=== PATIENT | female | born 1965 | race Caucasian/White ===

== ENCOUNTER 2017-08-02 21:20 | Emergency (ER) | payer SELFPAY ==
[~2017-08-02 21:20] MED LIST: AMOXICILLIN 8751 TAB PO; ANUSOL-HC SUPPO25 MG RC; BENTYL 20MG20 MG/TAB PO; DOXYCYCLINE 10100 MG PO; FLAGYL500 MG PO; GLUCOPHAGE500 MG/TAB PO; LOPRESSOR 225 MG/TAB PO; NAPROSYN500 MG PO; NORCO 325 MG-7.1 TAB PO; SYNTHROID 0.10.15 MG PO; SYNTHROID0.05 MG PO; ZANTAC 7575 MG PO
[2017-08-02 21:28] VITALS: TEMP 98.6
[2017-08-02] MEDS ORDERED: SYNTHROID0.125 MG/T PO (21:31)
[2017-08-02 22:00] LABS: BASO % 0.5 % (0.0-2.0); EOS # 0.1 (0.0-0.7); EOS % 1.4 % (0-4.0); GRAN # 5.4 (1.4-6.5); GRAN % 63.6 % (42.2-75.2); HEMATOCRIT 42.4 % (37.0-47.0); HEMOGLOBIN 13.9 g/dl (12.5-16.0); LYMPH # 2.4 (1.2-3.4); LYMPH % 28.5 % (20.0-51.0); MEAN CELL VOLUME 89 fl (80.0-100.0); MEAN CORPUSCULAR HEMOGLOBIN 29 pg (27.0-31.0); MEAN CORPUSCULAR HGB CONC 33 g/dl (33.0-37.0); MEAN PLATELET VOLUME 10.5 fl (7.4-10.4); MONO # 0.5 (0.1-0.6); MONO % 5.6 % (1.7-9.3); PLATELET COUNT 245 K/mm3 (130-400); RED BLOOD COUNT 4.76 M/mm3 (4.10-5.30); REDCELL DISTRIBUTION WIDTH-CV 12.3 % (11.5-14.5); WHITE BLOOD COUNT 8.4 K/mm3 (4.8-10.8)
[2017-08-02 22:16] LABS: ALBUMIN 4.5 gm/dL (3.5-5.0); BILIRUBIN,TOTAL 0.5 mg/dL (0.0-1.0); CALCIUM 9.4 mg/dL (8.4-10.2); CREATININE, serum 0.84 mg/dL (0.52-1.25); MAGNESIUM 1.9 mg/dL (1.6-2.3); POTASSIUM 3.8 mmol/L (3.4-5.0); TOTAL PROTEIN 8.1 gm/dL (6.4-8.2)
[2017-08-02 23:00] VITALS: BP 133/89; PULSE 77
== END 2017-08-02 23:15 | disposition home or self-care (01) ==
LOC: COL.ER 21:20
PROVIDERS: Emergency Medicine
DX: R20.2 Paresthesia of skin (principal); E03.9 Hypothyroidism, unspecified; Z90.49 Acquired absence of other specified parts of digestive tract
CPT/HCPCS: J7030

== ENCOUNTER 2017-10-08 11:55 | Emergency (ER) | payer BC ==
[~2017-10-08] VITALS: Ht 152.4 cm; Wt 104.5 kg
[~2017-10-08 11:55] MED LIST changes: +SYNTHROID0.125 MG/T PO
[2017-10-08 11:58] VITALS: TEMP 98.2
[2017-10-08 13:01] LABS: BASO # 0.1 (0.0-0.2); BASO % 0.7 % (0.0-2.0); EOS # 0.1 (0.0-0.7); EOS % 1.2 % (0-4.0); GRAN # 5.7 (1.4-6.5); GRAN % 63.1 % (42.2-75.2); HEMATOCRIT 41.3 % (37.0-47.0); HEMOGLOBIN 13.9 g/dl (12.5-16.0); LYMPH # 2.6 (1.2-3.4); LYMPH % 28.8 % (20.0-51.0); MEAN CELL VOLUME 88 fl (80.0-100.0); MEAN CORPUSCULAR HEMOGLOBIN 30 pg (27.0-31.0); MEAN CORPUSCULAR HGB CONC 34 g/dl (33.0-37.0); MEAN PLATELET VOLUME 10.7 fl (7.4-10.4); MONO # 0.5 (0.1-0.6); MONO % 5.6 % (1.7-9.3); PLATELET COUNT 249 K/mm3 (130-400); RED BLOOD COUNT 4.69 M/mm3 (4.10-5.30)
[2017-10-08 13:17] LABS: ADJUSTED CALCIUM 9.1 mg/dL (8.4-10.2); ALANINE AMINOTRANSFERASE 49 U/L (9-52); ALBUMIN 4.4 gm/dL (3.5-5.0); ALKALINE PHOSPHATASE 99 U/L (50-136); ANION GAP 8 mmol/L (7-16); BILIRUBIN,TOTAL 0.6 mg/dL (0.0-1.0); BLOOD UREA NITROGEN 11 mg/dL (7-17); C-REACTIVE PROTEIN 1.1 mg/dL (0.0-0.9); CALCIUM 9.4 mg/dL (8.4-10.2); CARBON DIOXIDE 28 mmol/L (22-30); CHLORIDE 102 mmol/L (98-107); CREATININE, serum 0.72 mg/dL (0.52-1.25); GLUCOSE 125 mg/dL (74-106); LIPASE 121 U/L (23-300); POTASSIUM 3.9 mmol/L (3.4-5.0); SODIUM 138 mmol/L (137-145); TOTAL PROTEIN 7.5 gm/dL (6.4-8.2)
[2017-10-08 13:29] LABS: COLLECTION METHOD CLEAN CATCH
[2017-10-08 13:31] LABS: TROPONIN-I < 0.012 ng/mL (0.000-0.034)
[2017-10-08 13:36] LABS: MUCOUS Present /lpf; PH 6 (5-8); SQUAMOUS EPITHELIAL 0-2 /hpf; URINE APPEARANCE Clear; URINE BACTERIA None Seen /hpf; URINE BILIRUBIN Negative (NEGATIVE); URINE BLOOD Negative (NEGATIVE); URINE COLOR Straw; URINE GLUCOSE Negative (NEGATIVE); URINE KETONE Negative (NEGATIVE); URINE LEUKOCYTE ESTERASE Negative (NEGATIVE); URINE PROTEIN(semi-quant) Negative (NEGATIVE); URINE RBC None Seen /hpf; URINE UROBILINOGEN Negative (NEGATIVE); URINE WBC 0-2 /hpf
[2017-10-08] MEDS ORDERED: PRILOSEC 20MG20 MG PO (13:42)
[2017-10-08 14:35] VITALS: BP 140/88; PULSE 72
== END 2017-10-08 14:34 | disposition home or self-care (01) ==
LOC: COL.ER 11:55
PROVIDERS: Family Medicine
DX: K29.70 Gastritis, unspecified, without bleeding (principal); R55 Syncope and collapse
CPT/HCPCS: C9113; J2405; J7030

== ENCOUNTER 2018-05-05 14:41 | Emergency (ER) | payer BC ==
[~2018-05-05] VITALS: Ht 152.4 cm; Wt 108.8 kg
[~2018-05-05 14:41] MED LIST changes: +PRILOSEC 20MG20 MG PO
[2018-05-05 14:43] VITALS: TEMP 98.3
[2018-05-05 15:05] LABS: BASO % 0.5 % (0.0-2.0); EOS # 0.2 (0.0-0.7); GRAN # 5.2 (1.4-6.5); GRAN % 60.2 % (42.2-75.2); HEMATOCRIT 37.3 % (37.0-47.0); HEMOGLOBIN 12.7 g/dl (12.5-16.0); LYMPH # 2.8 (1.2-3.4); LYMPH % 31.7 % (20.0-51.0); MEAN CELL VOLUME 87 fl (80.0-100.0); MEAN CORPUSCULAR HEMOGLOBIN 30 pg (27.0-31.0); MEAN CORPUSCULAR HGB CONC 34 g/dl (33.0-37.0); MEAN PLATELET VOLUME 10.4 fl (7.4-10.4); MONO # 0.5 (0.1-0.6); MONO % 5.3 % (1.7-9.3); PLATELET COUNT 241 K/mm3 (130-400); RED BLOOD COUNT 4.29 M/mm3 (4.10-5.30); REDCELL DISTRIBUTION WIDTH-CV 12.2 % (11.5-14.5)
[2018-05-05 15:10] LABS: INR 0.9 (0.8-3.0); PROTHROMBIN TIME 10.6 SECONDS (9.7-12.8)
[2018-05-05] MEDS ORDERED: ZANTAC 150MG15 MG/M1 PO (15:10)
[2018-05-05] MEDS ORDERED: SYNTHROID0.1 MG/TAB PO (15:10)
[2018-05-05 15:13] LABS: PARTIAL THROMBOPLASTIN TIME 35.4 SECONDS (26.0-37.0)
[2018-05-05 15:14] LABS: ALANINE AMINOTRANSFERASE 48 U/L (9-52); ALBUMIN 3.8 gm/dL (3.5-5.0); ALKALINE PHOSPHATASE 107 U/L (50-136); ANION GAP 10 mmol/L (7-16); AST,SGOT 35 U/L (15-37); BILIRUBIN,TOTAL 0.2 mg/dL (0.0-1.0); BLOOD UREA NITROGEN 14 mg/dL (7-17); CALCIUM 8.9 mg/dL (8.4-10.2); CARBON DIOXIDE 27 mmol/L (22-30); CHLORIDE 102 mmol/L (98-107); GLUCOSE 160 mg/dL (74-106); POTASSIUM 3.5 mmol/L (3.4-5.0); SODIUM 140 mmol/L (137-145); TOTAL PROTEIN 6.8 gm/dL (6.4-8.2)
[2018-05-05 15:36] LABS: TROPONIN-I < 0.012 ng/mL (0.000-0.034)
[2018-05-05 16:22] VITALS: BP 134/83; PULSE 93
== END 2018-05-05 16:23 | disposition home or self-care (01) ==
LOC: COL.ER 14:41
PROVIDERS: Family Medicine
DX: E86.0 Dehydration (principal); R00.2 Palpitations; R00.1 Bradycardia, unspecified
CPT/HCPCS: J7030

== ENCOUNTER 2018-10-20 09:49 | Emergency (ER) | payer BC ==
[~2018-10-20] VITALS: Ht 152.4 cm; Wt 109.1 kg
[~2018-10-20 09:49] MED LIST changes: +SYNTHROID0.1 MG/TAB PO; +ZANTAC 150MG15 MG/M1 PO
[2018-10-20 09:53] VITALS: TEMP 97.1
[2018-10-20 10:22] LABS: COLLECTION METHOD CLEAN CATCH
[2018-10-20 10:30] LABS: BASO % 0.5 % (0.0-2.0); EOS # 0.1 (0.0-0.7); EOS % 1.4 % (0-4.0); GRAN # 3.2 (1.4-6.5); GRAN % 57.1 % (42.2-75.2); HEMATOCRIT 45.5 % (37.0-47.0); HEMOGLOBIN 15.1 g/dl (12.5-16.0); LYMPH # 1.8 (1.2-3.4); LYMPH % 31.8 % (20.0-51.0); MEAN CELL VOLUME 88 fl (80.0-100.0); MEAN CORPUSCULAR HEMOGLOBIN 29 pg (27.0-31.0); MEAN CORPUSCULAR HGB CONC 33 g/dl (33.0-37.0); MEAN PLATELET VOLUME 10.3 fl (7.4-10.4); MONO # 0.5 (0.1-0.6); MONO % 8.8 % (1.7-9.3); PLATELET COUNT 222 K/mm3 (130-400); RED BLOOD COUNT 5.17 M/mm3 (4.10-5.30); REDCELL DISTRIBUTION WIDTH-CV 12.5 % (11.5-14.5)
[2018-10-20 10:38] LABS: BILIRUBIN,TOTAL 0.9 mg/dL (0.0-1.0); C-REACTIVE PROTEIN 5.5 mg/dL (0.0-0.9); CALCIUM 8.7 mg/dL (8.4-10.2); CREATININE, serum 0.74 mg/dL (0.52-1.25); POTASSIUM 3.5 mmol/L (3.4-5.0); TOTAL PROTEIN 7.3 gm/dL (6.4-8.2)
[2018-10-20 10:42] LABS: PH 5 (5-8); URINE APPEARANCE Cloudy; URINE BILIRUBIN Negative (NEGATIVE); URINE BLOOD Negative (NEGATIVE); URINE COLOR Amber; URINE GLUCOSE Negative (NEGATIVE); URINE KETONE Negative (NEGATIVE); URINE LEUKOCYTE ESTERASE Negative (NEGATIVE); URINE NITRATE Negative (NEGATIVE); URINE PROTEIN(semi-quant) 1+ (NEGATIVE)
[2018-10-20 10:43] LABS: MUCOUS Present /lpf; URINE BACTERIA Rare /hpf; URINE RBC None Seen /hpf; URINE WBC 0-2 /hpf
[2018-10-20] MEDS ORDERED: ZOFRAN ODT4 MG PO (11:15)
[2018-10-20 11:47] VITALS: BP 133/69; PULSE 84
== END 2018-10-20 11:48 | disposition home or self-care (01) ==
LOC: COL.ER 09:49
PROVIDERS: Emergency Medicine
DX: R19.7 Diarrhea, unspecified (principal); R11.2 Nausea with vomiting, unspecified; I10 Essential (primary) hypertension; E78.5 Hyperlipidemia, unspecified; E11.9 Type 2 diabetes mellitus without complications; Z90.49 Acquired absence of other specified parts of digestive tract
CPT/HCPCS: J1885; J2405; J7030

== ENCOUNTER 2020-05-21 12:41 | Emergency (ER) | payer BC ==
[~2020-05-21] VITALS: Ht 154.9 cm; Wt 113.6 kg
[~2020-05-21 12:41] MED LIST changes: +ZOFRAN ODT4 MG PO
[2020-05-21 12:46] VITALS: TEMP 98.1
[2020-05-21 14:09] LABS: COLLECTION METHOD CLEAN CATCH
[2020-05-21 14:15] LABS: BASO % 0.3 % (0.0-2.0); EOS # 0.1 (0.0-0.7); EOS % 1.1 % (0-4.0); GRAN # 6.4 (1.4-6.5); GRAN % 67.2 % (42.2-75.2); HEMATOCRIT 44.6 % (37.0-47.0); HEMOGLOBIN 14.8 g/dl (12.5-16.0); LYMPH # 2.5 (1.2-3.4); LYMPH % 26.1 % (20.0-51.0); MEAN CELL VOLUME 89 fl (80.0-100.0); MEAN CORPUSCULAR HEMOGLOBIN 29 pg (27.0-31.0); MEAN CORPUSCULAR HGB CONC 33 g/dl (33.0-37.0); MEAN PLATELET VOLUME 10.4 fl (7.4-10.4); MONO # 0.5 (0.1-0.6); MONO % 4.9 % (1.7-9.3); PLATELET COUNT 259 K/mm3 (130-400); RED BLOOD COUNT 5.03 M/mm3 (4.10-5.30); REDCELL DISTRIBUTION WIDTH-CV 12.4 % (11.5-14.5)
[2020-05-21 14:20] LABS: MUCOUS Present /lpf; PH 5 (5-8); SQUAMOUS EPITHELIAL 0-2 /hpf; URINE APPEARANCE Clear; URINE BACTERIA None Seen /hpf; URINE BILIRUBIN Negative (NEGATIVE); URINE BLOOD Negative (NEGATIVE); URINE COLOR Yellow; URINE GLUCOSE Negative (NEGATIVE); URINE KETONE Negative (NEGATIVE); URINE LEUKOCYTE ESTERASE Negative (NEGATIVE); URINE NITRATE Negative (NEGATIVE); URINE PROTEIN(semi-quant) Negative (NEGATIVE); URINE RBC 0-2 /hpf; URINE UROBILINOGEN Negative (NEGATIVE)
[2020-05-21 14:26] LABS: ALANINE AMINOTRANSFERASE 35 U/L (4-34); ALBUMIN 4.4 gm/dL (3.5-5.0); ALKALINE PHOSPHATASE 104 U/L (50-136); ANION GAP 6 mmol/L (7-16); AST,SGOT 40 U/L (15-37); BILIRUBIN,TOTAL 0.8 mg/dL (0.0-1.0); BLOOD UREA NITROGEN 14 mg/dL (7-17); CALCIUM 9.5 mg/dL (8.4-10.2); CARBON DIOXIDE 31 mmol/L (22-30); CHLORIDE 100 mmol/L (98-107); CREATININE, serum 0.76 (0.52-1.25); GLUCOSE 124 mg/dL (74-106); LIPASE 115 U/L (23-300); MAGNESIUM 1.8 mg/dL (1.6-2.3); POTASSIUM 3.7 mmol/L (3.4-5.0); SODIUM 138 mmol/L (137-145); TOTAL PROTEIN 8.2 gm/dL (6.4-8.2)
[2020-05-21 14:41] LABS: TROPONIN-I < 0.012 ng/mL (0.000-0.035)
[2020-05-21 15:49] VITALS: BP 134/92; PULSE 72
== END 2020-05-21 15:50 | disposition home or self-care (01) ==
LOC: COL.ER 12:41
PROVIDERS: Emergency Medicine
DX: R73.9 Hyperglycemia, unspecified (principal); R51 Headache; E07.9 Disorder of thyroid, unspecified; R07.9 Chest pain, unspecified; Z87.19 Personal history of other diseases of the digestive system; Z88.8 Allergy status to other drugs, medicaments and biological substances; Z90.49 Acquired absence of other specified parts of digestive tract
CPT/HCPCS: J7030

== ENCOUNTER 2021-01-28 09:34 | Emergency (ER) | payer BC ==
[~2021-01-28] VITALS: Ht 154.9 cm; Wt 109.1 kg
[2021-01-28 09:40] VITALS: TEMP 98.1
[2021-01-28 10:19] LABS: ALANINE AMINOTRANSFERASE 24 U/L (4-34); ALBUMIN 4.1 gm/dL (3.5-5.0); ALKALINE PHOSPHATASE 85 U/L (50-136); ANION GAP 9 mmol/L (7-16); AST,SGOT 22 U/L (15-37); BILIRUBIN,TOTAL 0.6 mg/dL (0.0-1.0); BLOOD UREA NITROGEN 17 mg/dL (7-17); CALCIUM 9.1 mg/dL (8.4-10.2); CARBON DIOXIDE 27 mmol/L (22-30); CHLORIDE 104 mmol/L (98-107); CREATININE, serum 0.73 (0.52-1.25); GLUCOSE 145 mg/dL (74-106); LIPASE 113 U/L (23-300); SODIUM 139 mmol/L (137-145); TOTAL PROTEIN 7.6 gm/dL (6.4-8.2)
[2021-01-28 10:21] LABS: BASO # 0.1 (0.0-0.2); BASO % 0.6 % (0.0-2.0); EOS # 0.2 (0.0-0.7); EOS % 1.7 % (0-4.0); GRAN # 4.9 (1.4-6.5); GRAN % 55.9 % (42.2-75.2); HEMATOCRIT 42.7 % (37.0-47.0); HEMOGLOBIN 14.3 g/dl (12.5-16.0); LYMPH # 3.2 (1.2-3.4); LYMPH % 36.1 % (20.0-51.0); MEAN CELL VOLUME 87 fl (80.0-100.0); MEAN CORPUSCULAR HEMOGLOBIN 29 pg (27.0-31.0); MEAN CORPUSCULAR HGB CONC 34 g/dl (33.0-37.0); MEAN PLATELET VOLUME 10.5 fl (7.4-10.4); MONO # 0.5 (0.1-0.6); MONO % 5.4 % (1.7-9.3); PLATELET COUNT 254 K/mm3 (130-400); REDCELL DISTRIBUTION WIDTH-CV 12.5 % (11.5-14.5)
[2021-01-28 10:23] LABS: PROTHROMBIN TIME 11.3 SECONDS (9.7-12.8)
[2021-01-28 10:25] LABS: PARTIAL THROMBOPLASTIN TIME 35.5 SECONDS (26.0-37.0)
[2021-01-28 10:32] LABS: TROPONIN-I < 0.012 ng/mL (0.000-0.035)
[2021-01-28 10:39] LABS: COLLECTION METHOD CLEAN CATCH
[2021-01-28 10:50] LABS: MUCOUS Present /lpf; PH 5 (5-8); URINE APPEARANCE Hazy; URINE BACTERIA None Seen /hpf; URINE BILIRUBIN Negative (NEGATIVE); URINE BLOOD Negative (NEGATIVE); URINE COLOR Yellow; URINE GLUCOSE Negative (NEGATIVE); URINE KETONE Negative (NEGATIVE); URINE LEUKOCYTE ESTERASE Negative (NEGATIVE); URINE NITRATE Negative (NEGATIVE); URINE PROTEIN(semi-quant) Negative (NEGATIVE); URINE RBC 0-2 /hpf; URINE UROBILINOGEN Negative (NEGATIVE)
[2021-01-28] MEDS ORDERED: PROTONIX 40MG T40 MG PO (13:32)
[2021-01-28 13:41] VITALS: BP 134/77; PULSE 63
== END 2021-01-28 13:47 | disposition home or self-care (01) ==
LOC: COL.ER 09:34
PROVIDERS: Emergency Medicine; Nurse Practitioner Primary Care
DX: R07.2 Precordial pain (principal); R00.2 Palpitations; R10.31 Right lower quadrant pain; R06.02 Shortness of breath; R11.0 Nausea; R35.0 Frequency of micturition; K21.9 Gastro-esophageal reflux disease without esophagitis; E11.9 Type 2 diabetes mellitus without complications; E03.9 Hypothyroidism, unspecified; Z79.890 Hormone replacement therapy
CPT/HCPCS: J7030

== ENCOUNTER 2021-05-19 09:06 | Inpatient (IN) | payer BC ==
[~2021-05-19] VITALS: Ht 154.9 cm; Wt 107.0 kg
[2021-05-19] VITALS (289 sets, daily range): BP systolic 153–159; BP diastolic 88–95; PULSE 67–88; TEMP 98.8–99.2; O2SAT 76–98
[~2021-05-19 09:06] MED LIST changes: +PROTONIX 40MG T40 MG PO
[2021-05-19 09:54] LABS: HEMATOCRIT 49.6 % (37.0-47.0); HEMOGLOBIN 16.4 g/dl (12.5-16.0); MEAN CELL VOLUME 87 fl (80.0-100.0); MEAN CORPUSCULAR HEMOGLOBIN 29 pg (27.0-31.0); MEAN CORPUSCULAR HGB CONC 33 g/dl (33.0-37.0); MEAN PLATELET VOLUME 11.1 fl (7.4-10.4); PLATELET COUNT 285 K/mm3 (130-400); RED BLOOD COUNT 5.69 M/mm3 (4.10-5.30); REDCELL DISTRIBUTION WIDTH-CV 12.6 % (11.5-14.5)
[2021-05-19 10:00] LABS: ARTERIAL BLD GAS O2 SATURATION 92.2 % (92-100); ARTERIAL BLD GAS TCO2 CT 27.8; ARTERIAL BLOOD GAS BASE EXCESS 2.3 (-2-2); ARTERIAL BLOOD GAS HCO3 26.6 meq/L (22-26); ARTERIAL BLOOD GAS PCO2 40.2 mmHg (35-45); ARTERIAL BLOOD GAS PO2 60.8 mmHg (80-100); ARTERIAL BLOOD GAS pH 7.44 (7.35-7.45)
[2021-05-19 10:06] LABS: ALANINE AMINOTRANSFERASE 81 U/L (4-34); ALBUMIN 3.8 gm/dL (3.5-5.0); ALKALINE PHOSPHATASE 97 U/L (50-136); ANION GAP 7 mmol/L (7-16); AST,SGOT 89 U/L (15-37); BILIRUBIN,TOTAL 0.9 mg/dL (0.0-1.0); BLOOD UREA NITROGEN 27 mg/dL (7-17); CALCIUM 8.9 mg/dL (8.4-10.2); CARBON DIOXIDE 29 mmol/L (22-30); CHLORIDE 104 mmol/L (98-107); GLUCOSE 245 mg/dL (74-106); LIPASE 387 U/L (23-300); POTASSIUM 3.9 mmol/L (3.4-5.0); SODIUM 139 mmol/L (137-145); TOTAL PROTEIN 7.7 gm/dL (6.4-8.2)
[2021-05-19 10:17] LABS: TROPONIN-I < 0.012 ng/mL (0.000-0.035)
[2021-05-19 10:47] LABS: BASOPHIL 1 % (0-2); LYMPHOCYTE 27 % (20.0-51.0); METAMYELOCYTE 1 % (0-0); NEUTROPHILS 68 % (42.0-75.2)
[2021-05-19 10:54] LABS: PLATELET ESTIMATE NORMAL (NORMAL)
[2021-05-19 16:21] LABS: INR 1.1 (0.8-3.0); PROTHROMBIN TIME 12.4 SECONDS (9.7-12.8)
[2021-05-19 16:35] LABS: TROPONIN-I < 0.012 ng/mL (0.000-0.035)
--- NOTE | 2021-05-19 17:13 | NUR ---
Report recieved from KEATON Garcia. Pt is laying in bed upon entry, she is A/O x4. Her breathing is currently even and unlabored on Airvo, denies dyspnea at rest. Assisted patient in standing and changing out of jeans, pt dyspneic with this. Discussed with her POC. No pain at this time. Call light within reach.
--- NOTE | 2021-05-19 19:54 | NUR ---
Patient assessed at this time. Alert and oriented x 4, and able to make needs known. Denies having pain and discomfort at this time. Peripheral INT to left AC. PICC to RUE. Both sites are without redness, warmth, swelling, and pain. Denies having SOB and dyspnea at rest, but reports "extreme shortness of breath" with any exertion. Currently on Airvo at 50L 60%. Tolerating well. SPO2 94% at this time, with respirations 25, even and unlabored at rest. LS CTA in upper lobes, diminished in lower. Reports occasional dry cough. HRR. Normal sinus, HR 85. Capillary refill less than 3 seconds. Non-tenting skin turgor. Skin warm, current temp 99.2 orally. BSAx4. Abdomen soft and non-tender. Reports having occasional diarrhea since receiving medicatons for Covid. Aware that urine sample is needed still, denies having the need to void at this time. 1+ edema BLE. Patient voices no questions, needs, or concerns at this time. Resting in bed, eatting at this time. Call light is within reach.
--- NOTE | 2021-05-19 20:00 | NUR ---
ID consult called to Dr. Perez at 1951.
--- NOTE | 2021-05-19 21:54 | NUR ---
Sharon called to see how patient was doing while this nurse was in another room. Called Sharon back and updated on patient.
--- NOTE | 2021-05-19 23:00 | NUR ---
Patient assisted to bedside commmode. Voided and had loose BM, so urine sample was not sent down due to contamination. 600 mls output. Patient having increased cough with some thieck, yellow sputum production. SPO2 did decrease to 87% during exertion, but increased to 91-93% after assisting back to bed . RT updated. Patient reports that she did feel short of breath during the exertion, but "not near as bad as before." Temp 99.1. Patient voices no questions, needs, or concerns at this time. Resting in bed with call light within reach.
[2021-05-20] VITALS (881 sets, daily range): BP systolic 140–160; BP diastolic 80–95; PULSE 59–90; TEMP 98.3–99.1; O2SAT 70–100
--- NOTE | 2021-05-20 02:17 | NUR ---
Telemetry notified this nurse at 0206 that patient had a 3 second pause on telemetry. Checked on patient. Awakened easily, and HR went from 50s to 60s. Denies having pain and discomfort. VS obtained. Spoke to [employer] and asked if there was any previous pauses. [employer] printed out 4 total pauses on tele from 0005, 0041, 0204, and 0218. Called to ANKIT Zimmerman. New order for cardiology consult, and for an EKG. Called and updated RT.
--- NOTE | 2021-05-20 05:55 | NUR ---
Patient given PRN cough medicine to help with frequent moist cough. Continues to be on Airvo, 50L 60% at this time. SPO2 96%. HR continued to silvia down into the 50s at times while sleeping, but has been 60s-70s while awake. Continues to deny having pain and discomfort at this time. Offered assistance to the bathroom, but stated she didn't need to use the bathroom at that time. Encouraged to call with any questions, needs, or concerns, and to let staff know if she needed anything. Voiced understanding. Resting in bed with call light within reach.
--- NOTE | 2021-05-20 06:33 | NUR ---
Cardiology consult called to Dr. Jensen at this time.
[2021-05-20 06:34] LABS: HEMATOCRIT 46.5 % (37.0-47.0); HEMOGLOBIN 15.2 g/dl (12.5-16.0); MEAN CELL VOLUME 88 fl (80.0-100.0); MEAN CORPUSCULAR HEMOGLOBIN 29 pg (27.0-31.0); MEAN CORPUSCULAR HGB CONC 33 g/dl (33.0-37.0); MEAN PLATELET VOLUME 10.8 fl (7.4-10.4); PLATELET COUNT 240 K/mm3 (130-400); RED BLOOD COUNT 5.28 M/mm3 (4.10-5.30); REDCELL DISTRIBUTION WIDTH-CV 12.5 % (11.5-14.5)
[2021-05-20 06:41] LABS: CALCIUM 8.8 mg/dL (8.4-10.2); CREATININE, serum 0.68 (0.52-1.25); MAGNESIUM 2.2 mg/dL (1.6-2.3); POTASSIUM 3.6 mmol/L (3.4-5.0)
[2021-05-20 07:16] LABS: LYMPHOCYTE 19 % (20.0-51.0); NEUTROPHILS 74 % (42.0-75.2)
[2021-05-20 07:17] LABS: PLATELET ESTIMATE NORMAL (NORMAL)
--- NOTE | 2021-05-20 19:00 | NUR ---
RECIEVED REPORT FROM DIMAS PUGH.
[2021-05-20 22:55] LABS: COLLECTION METHOD CLEAN CATCH
--- NOTE | 2021-05-20 23:00 | NUR ---
1944 - ASSESSMENT COMPLETED, VITAL SIGNS STABLE. DENIES NEEDS OR PAIN AT THIS TIME.
[2021-05-20 23:08] LABS: MUCOUS Present /lpf; PH 5 (5-8); URINE APPEARANCE Hazy; URINE BACTERIA Rare /hpf; URINE BILIRUBIN Negative (NEGATIVE); URINE BLOOD Negative (NEGATIVE); URINE COLOR Yellow; URINE GLUCOSE 1+ (NEGATIVE); URINE KETONE Negative (NEGATIVE); URINE LEUKOCYTE ESTERASE 1+ (NEGATIVE); URINE NITRATE Negative (NEGATIVE); URINE PROTEIN(semi-quant) Negative (NEGATIVE); URINE UROBILINOGEN Negative (NEGATIVE)
[2021-05-21] VITALS (655 sets, daily range): BP systolic 128–166; BP diastolic 60–89; PULSE 47–58; TEMP 97–98.7; O2SAT 83–100
--- NOTE | 2021-05-21 07:32 | NUR ---
BESIDE SHIFT REPORT RECEIVED FROM KEATON ARNOLD. PATIENT IN BED RESTING COMFORTABLY WITH EYES OPEN. VSS. CALL LIGHT WITHIN REACH. VLAD PICC IN PLACE. WILL ASSESS FURTHER.
--- NOTE | 2021-05-21 09:12 | NUR ---
DR. HINSON AT BEDSIDE. AGREEABLE TO TRANSFER TO FLOOR TODAY. STATED HE WILL PLACE ORDERS.
--- NOTE | 2021-05-21 14:48 | NUR ---
RECEIVE BED ORDERS. GAVE REPORT TO KINSEY ON SURGICAL.
--- NOTE | 2021-05-21 16:09 | NUR ---
PT ARRIVED TO MEDICAL FLOOR TO ROOM 308 VIA ICU STAFF AT 1520, O2 AIRVO 30L FIO2 50 PERCENT SATURATING 95 PERCENT. PT A/OX4, PT DENIES PAIN,N,V,CONSTIPATION. PT DOES REPORT ACTIVE DIAHHREA. VSS. ASSESMENT COMPLETE. MEDICATION RECON. COMPLETE. PT EXPRESSES NO ADDIIONAL NEEDS AT THIS TIME. THIS NURSE WILL CONTINUE TO MONITOR. CALL LIGHT WITHIN REACH.
--- NOTE | 2021-05-21 18:23 | NUR ---
PT A/OX4, VSS, 02 AIRVO 30L FI02 50 PERCENT, SATURATING 95 PERCENT. PT DENIES N/V/CONSTIPATION. PT REPORTS HAVING DIAHHREA EARLIER BUT HAS NO ACTIVE OUTPUT CURRENTLY. PT HAS REMAINED AFEBRILE THIS SHIFT. REMDESIVIR CURRENTLY INFUSING VIA PICC LINE. PT EXPRESSES NO ADDITIONAL NEEDS AT THIS TIME. CALL LIGHT WITHIN REACH.
--- NOTE | 2021-05-21 22:29 | NUR ---
Patient assessed around 191. Denied pain and discomfort. Denied SOB and dypsnea. On Airvo at 30L 53%. RT decreased later on to 30L 45%. Tolerating well. LS CTA upper, diminished lower. Continues to have moist cough, cough medicine given. Able to ambulate to bathroom, gait steady, denied SOB with exertion. Excoriation continues to under breast, abdominal/groin folds, and bottom. Voices no questions, needs, or concerns at this time. Resting in bed with call light within reach.
[2021-05-22] VITALS (7 sets, daily range): BP systolic 128–161; BP diastolic 59–69; PULSE 49–63; TEMP 97.9–98.5
--- NOTE | 2021-05-22 05:25 | NUR ---
Continues to wear Airvo at 30 L/min. Denies having pain and discomfort. Morning labs drawn from PICC. Voices no questions, needs, or concerns at this time. Resting in bed with call light within reach.
--- NOTE | 2021-05-22 08:49 | NUR ---
PT JUANITA, AOX4, PUSHED AIRVO FOR PT WHILE SHE AMBULATED TO BATHROOM. PT HAS STEADY GAIT, REPORTS SOME SOB WITH ACTIVITY BUT REPORTS IT'S MUCH BETTER THAN IT WAS BEFORE. ONCE PT RETURNED TO BED SHE WAS SATTING 86% ON AIRVO, PT RECOVERED TO 89-90% AFTER A FEW MINUTES. ASSESSMENT PERFORMED, MEDICATIONS GIVEN, VITALS OBTAINED AND DOCUMENTED. FRESH ICE WATER BROUGHT IN FOR PT, PT REPORTS ORDERING BREAKFAST, NO OTHER NEEDS AT THIS TIME
--- NOTE | 2021-05-22 11:49 | NUR ---
THELMA completed intake with patient over the phone. Patient states that she lives with her sister. Dalia [phone] in [facility]. patient states that she does not utilize DME and is independent with ADL's, PCP is Y[facility], and pharmacy is [facility], and is able to afford medications. Patient states that she does not have anyone appointed as DPOA. She provides that her plan is to return to her daughter Marta Gaffney home in [facility] [phone] up on [place]. THELMA will continue to follow. DC plan: [facility] home in [place]
--- NOTE | 2021-05-22 17:23 | NUR ---
PT PLEASANT, AOX4, TECH HELPING PT WITH BED BATH AND SHEET CHANGE. PT RECIEVED IV ANTIBIOTICS, REPORTS SOME SOB WITH ACTIVITY, DENIES N/V/D. NO OTHER NEEDS
[2021-05-23 04:19] VITALS: BP 131/60; PULSE 49; TEMP 98
--- NOTE | 2021-05-23 05:55 | NUR ---
Patient remains on Airvo 30L throughout the night. Patient slept well. No acute respiratory distress noted over the night. Call light within reach. Will continue to monitor.
[2021-05-23 09:09] VITALS: BP 132/68; PULSE 65; TEMP 98.4
[2021-05-23 11:18] VITALS: BP 137/67; PULSE 74; TEMP 98.6
--- NOTE | 2021-05-23 14:22 | NUR ---
Patient is doing well today. She was switched from 30L via Airvo to 2.5L NC. She is tolerating this well. Extension tubing was added to allow the patient to move freely around the room. 1400 medications were administered via the patient's PICC which is flushing well. Patient is not having any SOB, CP, cough, or generalized pain. Patient has had no complaints and is calling when she needs assistance.
[2021-05-23 17:00] VITALS: BP 122/64; PULSE 73; TEMP 98.2
[2021-05-23 21:14] VITALS: BP 141/61; PULSE 59; TEMP 98.2
[2021-05-24] VITALS (7 sets, daily range): BP systolic 125–148; BP diastolic 56–662; PULSE 54–95; TEMP 97.7–98.4
--- NOTE | 2021-05-24 00:58 | NUR ---
Pt alert and oriented. Pt complained of mild SOA when ambulating to the bathroom, resolves quickly after returning to bed. Pt's previous excoriation vastly improved on lower back and in skin folds. Pt had diminished lung sounds auscultated in bases bilaterally. Pt denied pain at the time. Pt's IV sites were without abnormalities. Pt's call light within reach and bed in lowest position. Pt able to ambulate independently in room.
--- NOTE | 2021-05-24 06:14 | NUR ---
Pt alert and oriented this shift. Pt able to ambulate independently in room. Pt c/o shortness of breath while ambulating that quickly resolves with rest. Pt's lung sounds were clear in upper lobes and diminished in lower. Pt able to freely converse and express needs this shift. Pt free from injury during shift.
--- NOTE | 2021-05-24 09:30 | NUR ---
Patient is doing well this morning. She was eating breakfast upon entering the room. Patient has no complaints at this time. Patient's only request is to speak with social work about short-term disability and other topics regarding work after discharging.
--- NOTE | 2021-05-24 15:13 | NUR ---
RT notified THELMA that the patient qualified for 3 liters of oxygen. SW contacted the patient to review d/c plan and inform her about the oxygen. The patient states that she will be staying with her daughter, Marta, in [place] upon discharge. She states that the hospitalist told her that she may be able to d/c tomorrow. SW informed her of the different DME companies. The patient was agreeable to getting the oxygen from [facility]. THELMA contacted and faxed the patient's oxygen order to Jose Luis at [facility]. Awaiting delivery of oxygen.
--- NOTE | 2021-05-24 16:40 | NUR ---
Patient doing well today. Still independent w/in her room. She has not had any complaints, but is nervous about going home on oxygen and worries that she will need it for the rest of her life.
--- NOTE | 2021-05-24 20:00 | NUR ---
Assessment complete. Patient has just showered independently with no issues. She is alert and oriented with no complaints of pain. She wears 3 liters 0xygen; lung sounds are clear in upper lobes with fine crackles in bases. No edema is noted. Patient is afebrile with no complaints of diarrhea. Comfort measures provided and call light in reach. Will continue to monitor.
[2021-05-25 04:20] VITALS: BP 107/64; PULSE 59; TEMP 98.3
[2021-05-25 07:33] VITALS: BP 134/70; PULSE 58; TEMP 98
--- NOTE | 2021-05-25 09:23 | NUR ---
Pt assessment complete. Pt is sitting up in bed, she is A/O x4. Her breathing is even and unlabored on 3L O2 via NC. Pt denies SOB at rest but does have dyspnea on exertion. Discussed ambulation, coughing and deep breathing. Pt denies any pain at this time. Has has some diarrhea today. No further needs, call light within reach.
--- NOTE | 2021-05-25 11:15 | NUR ---
The patient is ready to d/c today. THELMA notified Georgie at [facility]. Georgie reports that their grab driver will deliver the oxygen to the patient's room later this afternoon. THELMA notified the patient's RN. The patient is to discharge today, 05/25, to her daughter's home. No additional needs at this time.
[2021-05-25 11:30] VITALS: BP 112/51; PULSE 70; TEMP 98
[2021-05-25] MEDS ORDERED: DECADRON6 MG PO (12:33)
[2021-05-25] MEDS ORDERED: ROBITUSSIN DM 105 ML PO (12:33)
[2021-05-25] MEDS ORDERED: DOXYCYCLINE 10100 MG PO (13:23)
[2021-05-25] MEDS ORDERED: OMNICEF 300MG300 MG PO (13:23)
--- NOTE | 2021-05-25 17:50 | NUR ---
Discharge instructions reviewed with patient, oxygen instructions given to her and her daughters. PICC removed from RUE by RN. INT to LAC dc'd catheter tip intact. Pt wheeled out of facility by staff on 3L O2 via NC.
== END 2021-05-25 17:50 | disposition home or self-care (01) | DRG 177 ==
LOC: COL.ER 09:06 → ICU 10:50 → MEDICAL 05-21 15:44
PROVIDERS: Emergency Medicine; Internal Medicine Sleep Medicine; ADMIT Internal Medicine
PROC: 02HV33Z Insertion of Infusion Device into Superior Vena Cava, Percutaneous Approach (ICD-10-PCS; principal; 2021-05-19)
PROC: XW033E5 Introduction of Remdesivir Anti-infective into Peripheral Vein, Percutaneous Approach, New Technology Group 5 (ICD-10-PCS; 2021-05-20)
DX: U07.1 COVID-19 (principal); J12.82 Pneumonia due to coronavirus disease 2019; J96.01 Acute respiratory failure with hypoxia; A08.39 Other viral enteritis; E03.9 Hypothyroidism, unspecified; Z90.49 Acquired absence of other specified parts of digestive tract
CPT/HCPCS: 99223-AI; 99232-AI; 99233-AI; 99239; C1751; C1892; J0696; J1100; J1650; J2997; J7030; J7050; J8540

== ENCOUNTER 2021-09-04 17:28 | Emergency (ER) | payer BC ==
[~2021-09-04] VITALS: Ht 154.9 cm; Wt 113.6 kg
[~2021-09-04 17:28] MED LIST changes: +DECADRON6 MG PO; +OMNICEF 300MG300 MG PO; +ROBITUSSIN DM 105 ML PO
[2021-09-04 17:51] VITALS: TEMP 98.5
[2021-09-04 19:24] LABS: BASO # 0.1 K/mm3 (0.0-0.2); BASO % 0.6 % (0.0-2.0); EOS # 0.1 K/mm3 (0.0-0.7); EOS % 1.3 % (0-4.0); GRAN # 6.5 K/mm3 (1.4-6.5); GRAN % 63.2 % (42.2-75.2); HEMATOCRIT 38.9 % (37.0-47.0); HEMOGLOBIN 13.2 g/dl (12.5-16.0); LYMPH # 2.9 K/mm3 (1.2-3.4); LYMPH % 28.3 % (20.0-51.0); MEAN CELL VOLUME 88 fl (80.0-100.0); MEAN CORPUSCULAR HEMOGLOBIN 30 pg (27.0-31.0); MEAN CORPUSCULAR HGB CONC 34 g/dl (33.0-37.0); MEAN PLATELET VOLUME 10.3 fl (7.4-10.4); MONO # 0.6 K/mm3 (0.1-0.6); MONO % 6.2 % (1.7-9.3); PLATELET COUNT 292 K/mm3 (130-400); RED BLOOD COUNT 4.44 M/mm3 (4.10-5.30)
[2021-09-04 19:29] LABS: COLLECTION METHOD CLEAN CATCH
[2021-09-04 19:40] LABS: ALANINE AMINOTRANSFERASE 27 U/L (0-55); ALBUMIN 3.7 gm/dL (3.5-5.0); ALKALINE PHOSPHATASE 74 U/L (40-150); ANION GAP 12 mmol/L (7-16); AST,SGOT 21 U/L (5-34); BILIRUBIN,TOTAL 0.3 mg/dL (0.2-1.2); BLOOD UREA NITROGEN 12 mg/dL (10-20); CALCIUM 9.4 mg/dL (8.4-10.2); CARBON DIOXIDE 24 mmol/L (22-29); CHLORIDE 106 mmol/L (98-107); CREATININE, serum 0.78 mg/dL (0.57-1.11); GLUCOSE 130 mg/dL (70-99); POTASSIUM 4.3 mmol/L (3.5-4.5); SODIUM 142 mmol/L (136-145); TOTAL PROTEIN 7.4 gm/dL (6.2-8.1)
[2021-09-04 19:42] LABS: MUCOUS Present /lpf; PH 5 (5-8); URINE APPEARANCE Hazy; URINE BACTERIA Rare /hpf; URINE BILIRUBIN Negative (NEGATIVE); URINE BLOOD Negative (NEGATIVE); URINE COLOR Yellow; URINE GLUCOSE Negative (NEGATIVE); URINE KETONE Negative (NEGATIVE); URINE LEUKOCYTE ESTERASE Negative (NEGATIVE); URINE NITRATE Negative (NEGATIVE); URINE PROTEIN(semi-quant) Negative (NEGATIVE); URINE RBC 0-2 /hpf; URINE UROBILINOGEN Negative (NEGATIVE)
[2021-09-04 20:00] LABS: TROPONIN-I < 0.010 ng/mL (0.00-0.033); TSH w REFLEX 3.305 uIU/mL (0.350-4.940)
[2021-09-05] VITALS: BP 119/66; PULSE 75
== END 2021-09-04 23:59 | disposition home or self-care (01) ==
LOC: COL.ER 17:28
PROVIDERS: Nurse Practitioner
DX: R07.89 Other chest pain (principal); E03.9 Hypothyroidism, unspecified; Z79.890 Hormone replacement therapy; Z86.16 Personal history of COVID-19; Z99.81 Dependence on supplemental oxygen; Z79.82 Long term (current) use of aspirin

== ENCOUNTER → 2021-09-16 | Outpatient (CLI) | payer BC | LOC: COL.PUL 08-03 10:00 | DX: Z86.16 Personal history of COVID-19 (principal); Z87.891 Personal history of nicotine dependence ==

== ENCOUNTER 2021-10-02 14:40 | Emergency (ER) | payer BC ==
[~2021-10-02] VITALS: Ht 154.9 cm; Wt 113.6 kg
[2021-10-02 15:25] VITALS: BP 126/90; PULSE 76; TEMP 98.1
== END 2021-10-02 16:15 | disposition left against medical advice (07) ==
LOC: COL.ER 14:40
DX: J98.9 Respiratory disorder, unspecified (principal)

== ENCOUNTER 2021-10-04 17:06 | Emergency (ER) | payer BC ==
[~2021-10-04] VITALS: Ht 154.9 cm; Wt 113.6 kg
[2021-10-04 18:00] VITALS: TEMP 97.8
[2021-10-04 20:30] LABS: BASO # 0.1 K/mm3 (0.0-0.2); BASO % 0.5 % (0.0-2.0); EOS # 0.1 K/mm3 (0.0-0.7); EOS % 1.3 % (0-4.0); GRAN # 5.7 K/mm3 (1.4-6.5); GRAN % 60.2 % (42.2-75.2); HEMATOCRIT 42.1 % (37.0-47.0); HEMOGLOBIN 13.9 g/dl (12.5-16.0); LYMPH % 32.4 % (20.0-51.0); MEAN CELL VOLUME 88 fl (80.0-100.0); MEAN CORPUSCULAR HEMOGLOBIN 29 pg (27.0-31.0); MEAN CORPUSCULAR HGB CONC 33 g/dl (33.0-37.0); MEAN PLATELET VOLUME 10.4 fl (7.4-10.4); MONO # 0.5 K/mm3 (0.1-0.6); MONO % 5.4 % (1.7-9.3); PLATELET COUNT 271 K/mm3 (130-400); RED BLOOD COUNT 4.78 M/mm3 (4.10-5.30); REDCELL DISTRIBUTION WIDTH-CV 11.9 % (11.5-14.5)
[2021-10-04 20:38] LABS: PROTHROMBIN TIME 11.5 SECONDS (9.7-12.8)
[2021-10-04 20:59] LABS: ALBUMIN 3.8 gm/dL (3.5-5.0); BILIRUBIN,TOTAL 0.4 mg/dL (0.2-1.2); CALCIUM 9.3 mg/dL (8.4-10.2); CREATININE, serum 0.74 mg/dL (0.57-1.11); POTASSIUM 4.4 mmol/L (3.5-4.5); TOTAL PROTEIN 7.5 gm/dL (6.2-8.1)
[2021-10-04 22:21] VITALS: BP 148/78; PULSE 76
== END 2021-10-04 22:21 | disposition home or self-care (01) ==
LOC: COL.ER 17:06
PROVIDERS: Physician Assistant
DX: R42 Dizziness and giddiness (principal); R51.9 Headache, unspecified; Z20.822 Contact with and (suspected) exposure to COVID-19
CPT/HCPCS: J2765

== ENCOUNTER 2022-04-05 16:00 | Emergency (ER) | payer BC ==
[~2022-04-05] VITALS: Ht 154.9 cm; Wt 111.4 kg
[2022-04-05 16:10] VITALS: TEMP 97
[2022-04-05 16:37] LABS: BASO # 0.1 K/mm3 (0.0-0.2); BASO % 0.7 % (0.0-2.0); EOS # 0.1 K/mm3 (0.0-0.7); EOS % 1.2 % (0.0-4.0); GRAN # 5.6 K/mm3 (1.4-6.5); GRAN % 62.8 % (42.2-75.2); HEMATOCRIT 38.6 % (37.0-47.0); HEMOGLOBIN 12.7 g/dl (12.5-16.0); LYMPH # 2.6 K/mm3 (1.2-3.4); LYMPH % 29.6 % (20.0-51.0); MEAN CELL VOLUME 86 fl (80.0-100.0); MEAN CORPUSCULAR HEMOGLOBIN 28 pg (27-31); MEAN CORPUSCULAR HGB CONC 33 g/dl (33.0-37.0); MEAN PLATELET VOLUME 10.6 fl (7.4-10.4); MONO # 0.5 K/mm3 (0.1-0.6); MONO % 5.3 % (1.7-9.3); PLATELET COUNT 259 K/mm3 (130-400); RED BLOOD COUNT 4.49 M/mm3 (4.10-5.30); REDCELL DISTRIBUTION WIDTH-CV 12.5 % (11.5-14.5)
[2022-04-05] MEDS ORDERED: PROVENTIL0.09 MG/A1 IH (16:43)
[2022-04-05 16:56] LABS: ALANINE AMINOTRANSFERASE 22 U/L (0-55); ALBUMIN 3.5 gm/dL (3.5-5.0); ALKALINE PHOSPHATASE 105 U/L (40-150); ANION GAP 14 mmol/L (7-16); AST,SGOT 21 U/L (5-34); BILIRUBIN,TOTAL 0.4 mg/dL (0.2-1.2); BLOOD UREA NITROGEN 11 mg/dL (10-20); CALCIUM 9.2 mg/dL (8.4-10.2); CARBON DIOXIDE 24 mmol/L (22-29); CHLORIDE 102 mmol/L (98-107); CREATININE, serum 0.77 mg/dL (0.57-1.11); GLUCOSE 123 mg/dL (70-99); POTASSIUM 4.1 mmol/L (3.5-4.5); SODIUM 140 mmol/L (136-145)
[2022-04-05 17:02] LABS: COLLECTION METHOD CLEAN CATCH
[2022-04-05 17:03] LABS: TROPONIN-I < 0.010 ng/mL (0.00-0.033)
[2022-04-05 17:19] LABS: MUCOUS Present (NOT PRESENT); PH 5 (5-8); SQUAMOUS EPITHELIAL 0-2 /hpf (0-10); URINE APPEARANCE Clear (CLEAR/HAZY); URINE BACTERIA None Seen /hpf (NONE SEEN); URINE BILIRUBIN Negative (NEGATIVE); URINE BLOOD Negative (NEGATIVE); URINE COLOR Straw (YELLOW); URINE GLUCOSE Negative (NEGATIVE); URINE KETONE Negative (NEGATIVE); URINE LEUKOCYTE ESTERASE Negative (NEGATIVE); URINE NITRATE Negative (NEGATIVE); URINE PROTEIN(semi-quant) Negative (NEGATIVE); URINE RBC 0-2 /hpf (0-2); URINE UROBILINOGEN Negative (NEGATIVE)
[2022-04-05 17:56] VITALS: BP 166/71; PULSE 94
== END 2022-04-05 17:58 | disposition home or self-care (01) ==
LOC: COL.ER 16:00
PROVIDERS: Personal Emergency Response Attendant; Physician Assistant
DX: I49.3 Ventricular premature depolarization (principal); R07.89 Other chest pain; R06.02 Shortness of breath; E66.01 Morbid (severe) obesity due to excess calories; Z86.16 Personal history of COVID-19; Z99.81 Dependence on supplemental oxygen; Z28.310 Unvaccinated for COVID-19

== ENCOUNTER 2022-06-26 23:41 | Emergency (ER) | payer BC ==
[~2022-06-26] VITALS: Ht 154.9 cm; Wt 113.6 kg
[~2022-06-26 23:41] MED LIST changes: +PROVENTIL0.09 MG/A1 IH
[2022-06-26 23:51] VITALS: TEMP 97.7
[2022-06-27 00:06] LABS: BASO # 0.1 K/mm3 (0.0-0.2); BASO % 0.6 % (0.0-2.0); EOS # 0.1 K/mm3 (0.0-0.7); EOS % 1.2 % (0.0-4.0); GRAN # 7.3 K/mm3 (1.4-6.5); GRAN % 62.1 % (42.2-75.2); HEMATOCRIT 40.3 % (37.0-47.0); HEMOGLOBIN 13.6 g/dl (12.5-16.0); LYMPH # 3.5 K/mm3 (1.2-3.4); LYMPH % 29.6 % (20.0-51.0); MEAN CELL VOLUME 87 fl (80.0-100.0); MEAN CORPUSCULAR HEMOGLOBIN 29 pg (27-31); MEAN CORPUSCULAR HGB CONC 34 g/dl (33.0-37.0); MEAN PLATELET VOLUME 10.4 fl (7.4-10.4); MONO # 0.7 K/mm3 (0.1-0.6); PLATELET COUNT 269 K/mm3 (130-400); RED BLOOD COUNT 4.62 M/mm3 (4.10-5.30); REDCELL DISTRIBUTION WIDTH-CV 12.6 % (11.5-14.5)
[2022-06-27 00:35] LABS: COLLECTION METHOD CLEAN CATCH
[2022-06-27 00:38] LABS: ALANINE AMINOTRANSFERASE 28 U/L (0-55); ALBUMIN 3.6 gm/dL (3.5-5.0); ALKALINE PHOSPHATASE 109 U/L (40-150); ANION GAP 12 mmol/L (7-16); AST,SGOT 21 U/L (5-34); BILIRUBIN,TOTAL 0.3 mg/dL (0.2-1.2); BLOOD UREA NITROGEN 15 mg/dL (10-20); CALCIUM 9.3 mg/dL (8.4-10.2); CARBON DIOXIDE 24 mmol/L (22-29); CHLORIDE 104 mmol/L (98-107); GLUCOSE 160 mg/dL (70-99); LIPASE 50 U/L (8-78); SODIUM 140 mmol/L (136-145); TOTAL PROTEIN 7.3 gm/dL (6.2-8.1)
[2022-06-27 00:39] LABS: URINE COLOR Yellow (YELLOW)
[2022-06-27 00:40] LABS: URINE APPEARANCE Cloudy (CLEAR/HAZY); URINE BLOOD Negative (NEGATIVE); URINE GLUCOSE Negative (NEGATIVE); URINE KETONE Negative (NEGATIVE); URINE NITRATE Negative (NEGATIVE); URINE PROTEIN(semi-quant) Negative (NEGATIVE); URINE UROBILINOGEN 0.2 E.U/dL (0.2-1.0)
[2022-06-27 00:44] LABS: MUCOUS Present (NOT PRESENT); URINE BACTERIA None Seen /hpf (NONE SEEN)
[2022-06-27 00:47] LABS: TROPONIN-I < 0.010 ng/mL (0.00-0.033)
[2022-06-27 02:58] VITALS: BP 141/76; PULSE 89
== END 2022-06-27 02:58 | disposition home or self-care (01) ==
LOC: COL.ER 23:41
PROVIDERS: Nurse Practitioner Primary Care
DX: J84.9 Interstitial pulmonary disease, unspecified (principal); R94.6 Abnormal results of thyroid function studies; R00.0 Tachycardia, unspecified; Z86.16 Personal history of COVID-19; Z28.310 Unvaccinated for COVID-19
CPT/HCPCS: Q9967

== ENCOUNTER 2023-07-30 14:08 | Emergency (ER) | payer BC ==
[~2023-07-30] VITALS: Ht 154.9 cm; Wt 100.0 kg
[~2023-07-30 14:08] MED LIST changes: +CARAFATE S1 GM/10 ML PO; +PEPCID40 MG PO
[2023-07-30 17:18] LABS: COLLECTION METHOD CLEAN CATCH
[2023-07-30 17:27] LABS: URINE APPEARANCE Clear (CLEAR/HAZY); URINE BLOOD Negative (NEGATIVE); URINE COLOR Yellow (YELLOW); URINE GLUCOSE Negative (NEGATIVE); URINE KETONE Negative (NEGATIVE); URINE NITRATE Negative (NEGATIVE); URINE PROTEIN(semi-quant) Negative (NEGATIVE); URINE UROBILINOGEN 0.2 E.U/dL (0.2-1.0)
[2023-07-30 17:29] LABS: SQUAMOUS EPITHELIAL 0-2 /hpf (0-10); URINE BACTERIA None Seen /hpf (NONE SEEN); URINE RBC None Seen /hpf (0-2)
[2023-07-30 17:38] LABS: ALBUMIN 3.9 gm/dL (3.5-5.0); BILIRUBIN,TOTAL 0.7 mg/dL (0.2-1.2); CALCIUM 9.5 mg/dL (8.4-10.2); CREATININE, serum 0.77 mg/dL (0.57-1.11); POTASSIUM 4.1 mmol/L (3.5-4.5); TOTAL PROTEIN 7.5 gm/dL (6.2-8.1)
[2023-07-30 17:43] LABS: BASO # 0.1 K/mm3 (0.0-0.2); BASO % 0.6 % (0.0-2.0); EOS # 0.1 K/mm3 (0.0-0.7); EOS % 1.3 % (0.0-4.0); GRAN # 5.8 K/mm3 (1.4-6.5); GRAN % 65.8 % (42.2-75.2); HEMATOCRIT 39.4 % (37.0-47.0); HEMOGLOBIN 13.2 g/dl (12.5-16.0); LYMPH # 2.4 K/mm3 (1.2-3.4); LYMPH % 27.6 % (20.0-51.0); MEAN CELL VOLUME 88 fl (80.0-100.0); MEAN CORPUSCULAR HEMOGLOBIN 29 pg (27-31); MEAN CORPUSCULAR HGB CONC 34 g/dl (33.0-37.0); MEAN PLATELET VOLUME 10.7 fl (7.4-10.4); MONO # 0.4 K/mm3 (0.1-0.6); MONO % 4.4 % (1.7-9.3); PLATELET COUNT 244 K/mm3 (130-400); RED BLOOD COUNT 4.49 M/mm3 (4.10-5.30); REDCELL DISTRIBUTION WIDTH-CV 12.5 % (11.5-14.5)
[2023-07-30 18:59] VITALS: BP 145/88; PULSE 81; TEMP 97.8
== END 2023-07-30 18:59 | disposition home or self-care (01) ==
LOC: COL.ER 14:08
PROVIDERS: Personal Emergency Response Attendant
DX: E86.0 Dehydration (principal); Z99.81 Dependence on supplemental oxygen; Z86.16 Personal history of COVID-19
CPT/HCPCS: J7030

== ENCOUNTER → 2024-04-09 | Outpatient (CLI) | payer BC ==
[~2024-04-09] MED LIST changes: +CARAFATE 1GM1 G; +CARAFATE 1GM1 G PO; +CARDIZEM CD 12120 MG PO; +ELIQUIS 5MG PO; +NORCO 325 MG-51 TAB PO; +NORVASC 10MG10 MG PO; +SYNTHROID0.088 MG/T PO
== END ==
LOC: DIA.ED 09:10
DX: E11.9 Type 2 diabetes mellitus without complications (principal); Z79.84 Long term (current) use of oral hypoglycemic drugs; E78.5 Hyperlipidemia, unspecified; I10 Essential (primary) hypertension
CPT/HCPCS: G0108

== ENCOUNTER 2024-05-04 13:53 | Emergency (ER) | payer BC ==
[~2024-05-04] VITALS: Ht 154.9 cm; Wt 113.6 kg
[~2024-05-04 13:53] MED LIST changes: -NORCO 325 MG-51 TAB PO
[2024-05-04 14:02] VITALS: TEMP 98.2
[2024-05-04] MEDS ORDERED: NS 1,000 ML IV ONE (14:30)
[2024-05-04] MEDS ORDERED: Pantoprazole 40 MG in NS 10 ML IV ONE (14:30)
[2024-05-04] MEDS ORDERED: Ondansetron 4 MG/2 ML VIAL IV PRN (14:30)
[2024-05-04] MEDS ORDERED: Morphine 4 MG/ML VIAL IV PRN (14:30)
[2024-05-04 15:16] LABS: BASO % 0.5 % (0.0-2.0); EOS # 0.1 K/mm3 (0.0-0.7); EOS % 1.7 % (0.0-4.0); GRAN # 4.6 K/mm3 (1.4-6.5); GRAN % 60.7 % (42.2-75.2); HEMATOCRIT 39.7 % (37.0-47.0); LYMPH # 2.4 K/mm3 (1.2-3.4); LYMPH % 31.4 % (20.0-51.0); MEAN CELL VOLUME 89 fl (80.0-100.0); MEAN CORPUSCULAR HEMOGLOBIN 29 pg (27-31); MEAN CORPUSCULAR HGB CONC 33 g/dl (33.0-37.0); MEAN PLATELET VOLUME 11.4 fl (7.4-10.4); MONO # 0.4 K/mm3 (0.1-0.6); MONO % 5.2 % (1.7-9.3); PLATELET COUNT 136 K/mm3 (130-400); RED BLOOD COUNT 4.48 M/mm3 (4.10-5.30); REDCELL DISTRIBUTION WIDTH-CV 12.4 % (11.5-14.5)
[2024-05-04 15:39] LABS: ALBUMIN 3.5 g/dL (3.5-5.0); BILIRUBIN,TOTAL 0.5 mg/dL (0.2-1.2); CALCIUM 9.1 mg/dL (8.4-10.2); CREATININE, serum 0.75 mg/dL (0.57-1.11); POTASSIUM 4.6 mEq/L (3.5-4.5); TOTAL PROTEIN 6.6 g/dl (6.2-8.1)
[2024-05-04] MEDS ORDERED: NORCO 325 MG-51 TAB PO (15:52)
[2024-05-04] MEDS ORDERED: ZOFRAN ODT4 MG PO (16:32)
[2024-05-04] MEDS ORDERED: PROTONIX 40MG T40 MG PO (16:32)
[2024-05-04 16:42] VITALS: BP 154/88; PULSE 78
== END 2024-05-04 16:42 | disposition home or self-care (01) ==
LOC: COL.ER 13:53
PROVIDERS: Personal Emergency Response Attendant
DX: R10.13 Epigastric pain (principal); R10.10 Upper abdominal pain, unspecified; R11.10 Vomiting, unspecified; Z90.49 Acquired absence of other specified parts of digestive tract
CPT/HCPCS: J2470; J7030

== ENCOUNTER 2024-08-24 13:36 | Emergency (ER) | payer BC ==
[~2024-08-24] VITALS: Ht 154.9 cm; Wt 113.6 kg
[~2024-08-24 13:36] MED LIST changes: +NORCO 325 MG-51 TAB PO
[2024-08-24 13:56] VITALS: TEMP 98
[2024-08-24 15:00] LABS: BASO % 0.5 % (0.0-2.0); EOS # 0.1 K/mm3 (0.0-0.7); EOS % 1.1 % (0.0-4.0); GRAN # 5.4 K/mm3 (1.4-6.5); GRAN % 66.3 % (42.2-75.2); HEMATOCRIT 39.1 % (37.0-47.0); HEMOGLOBIN 12.8 g/dl (12.5-16.0); LYMPH # 2.2 K/mm3 (1.2-3.4); LYMPH % 27.3 % (20.0-51.0); MEAN CELL VOLUME 88 fl (80.0-100.0); MEAN CORPUSCULAR HEMOGLOBIN 29 pg (27-31); MEAN CORPUSCULAR HGB CONC 33 g/dl (33.0-37.0); MEAN PLATELET VOLUME 10.2 fl (7.4-10.4); MONO # 0.4 K/mm3 (0.1-0.6); MONO % 4.6 % (1.7-9.3); PLATELET COUNT 243 K/mm3 (130-400); RED BLOOD COUNT 4.44 M/mm3 (4.10-5.30); REDCELL DISTRIBUTION WIDTH-CV 12.3 % (11.5-14.5)
[2024-08-24 15:27] LABS: ALBUMIN 3.4 g/dL (3.5-5.0); BILIRUBIN,TOTAL 0.5 mg/dL (0.2-1.2); CALCIUM 9.1 mg/dL (8.4-10.2); CREATININE, serum 0.77 mg/dL (0.57-1.11); POTASSIUM 4.1 mEq/L (3.5-4.5); TOTAL PROTEIN 6.9 g/dl (6.2-8.1)
[2024-08-24 15:38] LABS: COLLECTION METHOD CLEAN CATCH
[2024-08-24] MEDS ORDERED: NS 100 ML IV SCH (15:38)
[2024-08-24] MEDS ORDERED: Iohexol 300 - 100 ML VIAL IV ONE (15:38)
[2024-08-24 15:41] LABS: PH 5.5 (5.0-8.5); URINE APPEARANCE CLEAR (CLEAR/HAZY); URINE BLOOD NEGATIVE (NEGATIVE); URINE COLOR YELLOW (YELLOW); URINE GLUCOSE NEGATIVE (NEGATIVE); URINE KETONE NEGATIVE (NEGATIVE); URINE NITRATE NEGATIVE (NEGATIVE); URINE PROTEIN(semi-quant) NEGATIVE (NEGATIVE); URINE UROBILINOGEN 0.2 E.U/dL (0.2-1.0)
[2024-08-24] MEDS ORDERED: CARAFATE S1 GM/10 ML PO (17:40)
[2024-08-24 17:50] VITALS: BP 149/75; PULSE 59
== END 2024-08-24 17:50 | disposition home or self-care (01) ==
LOC: COL.ER 13:36
PROVIDERS: Emergency Medicine
DX: R10.9 Unspecified abdominal pain (principal)
CPT/HCPCS: Q9967